=== PATIENT | female | born 1995 | race Caucasian/White ===

== ENCOUNTER 2020-07-30 14:48 | Outpatient (CLI) | payer OTHER ==
--- NOTE | 2020-07-30 17:11 | Ultrasound Report ---
PROCEDURE: Head or Neck Soft Tissue INDICATIONS: ENLARGED LYMPH NODES TECHNIQUE: Real time scanning was performed of the neck region of interest, with image documentation . COMPARISON: None. FINDINGS: In the area of palpable abnormality in the right neck, there is a lymph node which measures 1.1 x 0.6 cm. Cortical thickness measures 4 mm, which is nonspecific. IMPRESSION: Area of palpable abnormality corresponds to a cervical lymph node, nonspecific finding. Recommend cli nical correlation and management to resolution. Reviewed by: Scott Casper MD on 07/30/2020 5:09 PM PST Approved by: Scott Casper MD on 07/30/2020 5:09 PM PST Station ID: [id number]
== END 2020-07-30 14:49 | disposition home or self-care (01) ==
LOC: DI 14:48
PROVIDERS: ATTEND Physician Assistant Medical
DX: R59.0 Localized enlarged lymph nodes (principal)

== ENCOUNTER 2021-03-23 08:00 | Outpatient (CLI) | payer OTHER ==
[2021-03-23 17:08] LABS: BILIRUBIN,URINE NEGATIVE (NEGATIVE); CLARITY,URINE CLEAR (CLEAR); GLUCOSE, URINE (UA) NEGATIVE (NEGATIVE); KETONES,URINE (UA) NEGATIVE (NEGATIVE); LEUKOCYTE ESTERASE, URINE NEGATIVE (NEGATIVE); NITRITE,URINE NEGATIVE (NEGATIVE); OCCULT BLOOD,URINE NEGATIVE (NEGATIVE); PH,URINE 6.5 PH (5.0-7.5); PROTEIN,URINE NEGATIVE (NEGATIVE); UROBILINOGEN,URINE 0.2 (NORMAL) E.U./dL (NORMAL)
[2021-03-23 17:36] LABS: BACTERIA,URINE Few /HPF (None Seen); RBC,URINE 0-5 /HPF (0-5); SQUAMOUS EPITHELIAL CELL,UR MOD Squamous (<= Few); WBC,URINE 0-3 /HPF (0-5)
== END 2021-03-23 23:59 | disposition home or self-care (01) ==
LOC: LAB.WC 08:00
PROVIDERS: ATTEND Obstetrics & Gynecology
DX: Z32.01 Encounter for pregnancy test, result positive (principal)
CPT/HCPCS: 81001; 87086

== ENCOUNTER 2021-03-30 19:35 | Outpatient (CLI) | payer OTHER ==
--- NOTE | 2021-03-30 20:33 | Ultrasound Report ---
PROCEDURE: OB First Trimester w/TV INDICATIONS: POSITIVE TEST OUTSIDE/PRIOR DATING DATA: Last menstrual period (LMP): 02/03/2021. LMP-based estimated date of delivery (BASHIR): 11/10/2021. First dating scan (date and location): 03/30/2021. Estimated date of delivery (BASHIR) from first dating scan: 11/08/2021. The below data below was generated using the study generated BASHIR of 11/08/2021 TECHNIQUE: Real-time scanning was performed of the fetus and maternal pelvic organs, with image documentation. Endovaginal scanning was also performed to better visualize the fetus and maternal ovaries. COMPARISON: None FINDINGS: Embryo: Single intrauterine gestational sac is seen with yolk sac and pole seen. [place]-rump le ngth measures 1.7 cm. Estimated gestational age is 8 weeks, 1 day. Heart rate: 171 bpm. Small subchorionic bleed measures 2 x 0.8 x 1.7 cm in size is seen. Measurement variability in dating: +/- 4 weeks by LMP, +/- 7 days by mean sac diameter (use before 6 weeks gestation if crown-rump length not able to be measured), +/- 5 days by crown-rump length (6-12 weeks gestation). Maternal organs: Arcuate uterus is seen. Small right corpus luteal cyst measures 7 x 9 mm in size is seen. IMPRESSION: 1. Single live intrauterine with fetus and yolk sac seen. heart rate is 171 bpm. Ludy mated gestational age based on current study is a weeks, 1 day. 2. Small subchorionic hematoma as above. 3. Suggestion of arcuate uterus. Robust luteal cyst in right ovary as above. Reviewed by: Rodriguez Perez MD on 03/30/2021 8:32 PM PDT Approved by: Rodriguez Perez MD on 03/30/2021 8:32 PM PDT Station ID: [id number]
== END 2021-03-30 19:36 | disposition home or self-care (01) ==
LOC: DI 19:35
PROVIDERS: ATTEND Obstetrics & Gynecology
DX: Z32.01 Encounter for pregnancy test, result positive (principal); O34.01 Maternal care for unspecified congenital malformation of uterus, first trimester; Q51.810 Arcuate uterus; O34.81 Maternal care for other abnormalities of pelvic organs, first trimester; N83.11 Corpus luteum cyst of right ovary; Z3A.08 8 weeks gestation of pregnancy

== ENCOUNTER 2021-04-04 16:44 | Outpatient (CLI) | payer OTHER ==
[2021-04-04 17:32] LABS: BASOPHILS % (AUTO) 0.2 %; EOSINOPHILS # (AUTO) 0.2 10^3/uL (0.0-0.7); EOSINOPHILS % (AUTO) 1.7 %; HCT - HEMATOCRIT 37.2 % (37.0-47.0); HGB - HEMOGLOBIN 12.5 g/dL (12.0-16.0); LYMPHOCYTES # (AUTO) 2.2 10^3/uL (1.5-3.5); LYMPHOCYTES % (AUTO) 21.6 %; MEAN CORPUSCULAR HEMOGLOBIN 29.1 pg (27.0-31.0); MEAN CORPUSCULAR HGB CONC 33.6 g/dL (32.0-36.0); MEAN CORPUSCULAR VOLUME 86.7 fL (81.0-99.0); MEAN PLATELET VOLUME 9.6 fL (7.9-10.8); MONOCYTES % (AUTO) 9.8 %; NEUTROPHILS # (AUTO) 6.8 10^3/uL (1.5-6.6); NEUTROPHILS % (AUTO) 66.4 %; PLT - PLATELET COUNT 345 10^3/uL (130-450); RED BLOOD COUNT 4.29 10^6/uL (4.20-5.40); RED CELL DISTRIBUTION WIDTH 12.6 % (12.0-15.0); WHITE BLOOD COUNT 10.2 x10^3/uL (4.8-10.8)
[2021-04-05 12:16] LABS: HEPATITIS C ANTIBODY NON-REACTIVE (NON-REACTIVE)
[2021-04-05 12:17] LABS: HEPATITIS B SURFACE ANTIGEN NON-REACTIVE (NON-REACTIVE)
[2021-04-05 15:08] LABS: HIV AG/AB 4TH GEN NON-REACTIVE (NON-REACTIVE)
== END 2021-04-04 16:45 | disposition home or self-care (01) ==
LOC: LAB 16:44
PROVIDERS: ATTEND Obstetrics & Gynecology
DX: Z36.89 Encounter for other specified antenatal screening (principal); Z32.01 Encounter for pregnancy test, result positive
CPT/HCPCS: 36415; 85025; 86592; 86762; 86787; 86803; 86850; 86900; 86901; 87340; 87389

== ENCOUNTER 2021-04-25 07:10 | Outpatient (CLI) | payer OTHER | END 2021-04-25 07:11 | disposition home or self-care (01) | LOC: LAB 07:10 | PROVIDERS: ATTEND Obstetrics & Gynecology | DX: Z34.90 Encounter for supervision of normal pregnancy, unspecified, unspecified trimester (principal) | CPT/HCPCS: 36415 ==

== ENCOUNTER 2023-10-27 08:00 | Outpatient (CLI) | payer OTHER | END 2023-10-27 23:59 | disposition home or self-care (01) | LOC: LAB.N 08:00 | PROVIDERS: ATTEND Family Medicine | DX: N39.0 Urinary tract infection, site not specified (principal) | CPT/HCPCS: 87086; 87181 ==